=== PATIENT | male | born 1985 | race Caucasian/White ===

== ENCOUNTER → 2022-09-17 | Outpatient (RCR) | payer BC ==
[~2022-09-17] VITALS: Ht 177.8 cm; Wt 120.0 kg
[~2022-09-17] MED LIST: FERRIC CARBOXYMALTOSE INJ 750 MG in NS (IVPB) 250 ML IV SCH
[2022-09-17 12:57] VITALS: BP 121/78
== END ==
LOC: SDC 12:14
PROVIDERS: ATTEND Family Medicine
DX: D50.9 Iron deficiency anemia, unspecified (principal)
CPT/HCPCS: 96365

== ENCOUNTER 2022-09-23 12:58 | Outpatient (RCR) | payer BC ==
[~2022-09-23] VITALS: Ht 177.8 cm; Wt 120.0 kg
[2022-09-23 13:05] VITALS: BP 117/80
[2022-09-23] MEDS ORDERED: FERRIC CARBOXYMALTOSE INJ 750 MG in NS (IVPB) 250 ML IV NR (13:15)
== END 2022-10-17 | disposition home or self-care (01) ==
LOC: SDC 12:58
PROVIDERS: ATTEND Family Medicine
DX: D50.9 Iron deficiency anemia, unspecified (principal)
CPT/HCPCS: 96365